=== PATIENT | male | born 1985 ===

== ENCOUNTER 2018-02-04 15:54 | Emergency (ER) | payer OTHER ==
[2018-02-04 16:03] VITALS: O2SAT 99
--- NOTE | 2018-02-04 16:15 | ED PDOC ---
Lower Extremity Pain/Injury Time Seen by Provider: 02/04/18 16:05 Chief Complaint (Nursing): Lower Extremity Problem/Injury Chief Complaint (Provider): right knee pain History Per: Patient History/Exam Limitations: no limitations Onset/Duration Of Symptoms: Hrs (this morning) Current Symptoms Are (Timing): Still Present Additional Complaint(s): 32 year old male presents to the emergency department complaining of mild right knee pain, stating he cannot fully extend it, onset this morning. Patient reports he may have twisted his leg in bed this morning, but denies any other trauma or injury. On arrival, patient was able to ambulate, he just notes feeling as if he is unable to bear his full weight on his right leg. He denies tingling or numbness. Patient notes he has been taking Tylenol for an unrelated issue, but it did not help his knee pain. He does not have a lot of pain but is concerned that he cannot fully extend the knee. PMD: none provided Past Medical History Reviewed: Historical Data, Nursing Documentation, Vital Signs Vital Signs: Last Vital Signs Temp 97.5 F L 02/04/18 16:00 Pulse 55 L 02/04/18 16:00 Resp 20 02/04/18 16:00 BP 107/68 02/04/18 16:00 Pulse Ox 99 02/04/18 16:00 - Medical History Other PMH: Primary ciliary diskinesia - Surgical History Other surgeries: atrial septic defect repair as infanct, stomach surgery to repair internal bleeding - Family History Family History: States: No Known Family Hx - Living Arrangements Living Arrangements: With Family - Social History Current smoker - smoking cessation education provided: No Alcohol: Occasional Drugs: Denies - Allergies Allergies/Adverse Reactions: Allergies Allergy/AdvReac Type Severity Reaction Status Date / Time No Known Allergies Allergy Verified 02/04/18 15:59 Wells Criteria for PE - Wells Criteria for Pulmonary Embolism Clinical Signs and Symptoms of DVT: No P.E is #1 Diagnosis, or Equally Likely: No Heart Rate >100: No Immobilization at least 3 days;Surgery previous 4 weeks: No Previous, objectively diagnosed PE or DVT: No Hemoptysis: No Malignancy w/treatment within 6 months, or palliative: No Total Score: 0 Review of Systems ROS Statement: Except As Marked, All Systems Reviewed And Found Negative Constitutional: Negative for: Fever Musculoskeletal: Positive for: Leg Pain (right knee; unable to fully extend) Neurological: Negative for: Numbness, Other (tingling) Physical Exam - Reviewed Nursing Documentation Reviewed: Yes Vital Signs Reviewed: Yes - Physical Exam Appears: Positive for: Well, Non-toxic, No Acute Distress Head Exam: Positive for: ATRAUMATIC, NORMAL INSPECTION, NORMOCEPHALIC Skin: Positive for: Normal Color. Negative for: Rash Eye Exam: Positive for: Normal appearance Extremity: Positive for: Other (right knee - cannot fully extend right knee, full flexion noted, no swelling, erythema or warmth noted to knee). Negative for: Calf Tenderness Neurologic/Psych: Positive for: Alert, Oriented (x3), Gait (steady) - ECG O2 Sat by Pulse Oximetry: 99 (RA) Pulse Ox Interpretation: Normal - Other Rad Right knee x-ray X-Ray: Interpreted by Me, Viewed By Me X-Ray Interpretation: no fx, no dis Medical Decision Making Medical Decision Making: Time: 16:11 Initial impression: 32 year old with right knee pain x 1 day Initial Plan: --Pain meds declined --X-ray right knee Patient declined brace to knee, states he already purchased one. Patient aware of x-ray results and aware of limitations of x-rays with respect to evaluating soft tissue. Advised NSAID's for pain and ortho follow up if symptoms persist. Scribe Attestation: Documented by Bety Rosario, acting as a scribe for Louann Almanza PA-C. Provider Scribe Attestation: All medical record entries made by the Scribe were at my direction and personally dictated by me. I have reviewed the chart and agree that the record accurately reflects my personal performance of the history, physical exam, medical decision making, and the department course for this patient. I have also personally directed, reviewed, and agree with the discharge instructions and disposition. Disposition - Clinical Impression Clinical Impression: Knee pain - Patient ED Disposition Is Patient to be Admitted: No Counseled Patient/Family Regarding: Studies Performed, Diagnosis, Need For Followup - Disposition Referrals: Moris Leone MD [Staff Provider] - Disposition: Routine/Home Disposition Time: 16:45 Condition: STABLE Additional Instructions: Ice, rest and elevate affected area. Ibuprofen for pain as needed. Follow up with orthopedist for any persistent symptoms. Instructions: Knee Pain (DC), Calf Stretches, Strengthening Your Lower Body and Core, Lower Extremity Exercises Seated, Postop Total Knee Replacement Exercises Seated or Standing Forms: [employer] (Armenian)
[2018-02-04 16:52] VITALS: BP 110/74; PULSE 63; RESP 16; TEMP 98.6
--- NOTE | 2018-02-04 17:00 | RAD ---
PROCEDURE: Right Knee Radiographs. HISTORY: Pain COMPARISON: None. FINDINGS: BONES: Bone alignment and mineralization are normal. There is no acute displaced fracture or bone destruction. JOINTS: Normal. No osteoarthritis. JOINT EFFUSION: There is a small suprapatellar joint effusion. OTHER FINDINGS: There is chondrocalcinosis in the anterior horn of the lateral meniscus. There is curvilinear ossification in the superior medial collateral ligament. IMPRESSION: No acute displaced fracture or dislocation. Small suprapatellar joint effusion. Brendon-Stieda syndrome.
== END 2018-02-04 16:52 | disposition home or self-care (01) ==
LOC: H.ER 15:54
DX: M25.561 Pain in right knee (principal)